=== PATIENT | female | born 1960 | race African-American/Black ===

== ENCOUNTER 2023-09-05 11:56 | Emergency (ER) | payer OTHER, SELFPAY ==
[2023-09-05] VITALS (7 sets, daily range): BP systolic 132–159; BP diastolic 89–122; PULSE 110–120; RESP 18–20; TEMP 36.3–36.6; O2SAT 93–100
--- NOTE | ~2023-09-05 | CT_ITS ---
EXAMINATION: CT abdomen pelvis w con DATE: 09/05/2023 16:59 INDICATION: Biliary drain dysfunction. TECHNIQUE: Computed tomography (CT) of the abdomen and pelvis was performed with 100 mL Omnipaque 350 intravenous contrast. Automated exposure control and iterative reconstruction technique were employe d. The dose-length product was 326.97 mGy-cm. COMPARISON: None. FINDINGS: The visualized portions of the lung bases demonstrate mild atelectasis. No pleural effusion . The heart size is normal. There are coronary artery calcifications. No pericardial effusion. There are cysts in the liver measuring up to 9 mm. There is a percutaneous cholecystectomy tube in expected position. The gallbladder is decompressed. The spleen, pancreas, and adrenal glands are normal. Ther e are cysts in the kidneys measuring up to 8 mm on the left. There is mild atrophy of left kidney. Th ere is a 3.0 cm fusiform aneurysm of infrarenal aorta. There is calcified atherosclerosis of the aort a and many of the other arteries. There is a right inguinal hernia containing fat. There is diverticu losis of the colon without evidence of diverticulitis. There are no dilated loops of bowel. The appen yi is normal. There is a 7.0 x 4.5 cm cyst with imperceptible wall in the mesentery on the right, li bhupendra a lymphangioma. There are no pathologically enlarged lymph nodes. There is no free intraperitone al fluid. There is thoracolumbar dextroscoliosis and moderate spondylosis. There is mild chronic ante rior wedging of multiple vertebral bodies. IMPRESSION: 1. Decompressed gallbladder with percutaneous cholecystostomy tube in expected position. Reviewed, dictated and finalized at location A.
--- NOTE | 2023-09-05 13:14 | PC.NURSE ---
Patient billiary drain intact, insertion site does not appear to have any drainage, but the drain has no bag in place, and patient states she's had it tucked into her depend for a long time since the bag bust open patient afebrile and denying any pain
--- NOTE | 2023-09-05 14:06 | ED.GENADULT ---
HPI - General Adult General Chief complaint: Recheck/Abnormal Lab/Rx Stated complaint: biliary port falling out Time Seen by Provider: 09/05/23 13:07 History of Present Illness HPI narrative: This is a 62-year-old [facility] patient presenting for evaluation of her biliary drain. [facility] says that she pulled out. Does not appear that she pulled out his peers there is no bag on the end of it. It is still sutured in place. Patient is A&O times 1-2 and can provide no useful information during the exam. We did reach out to the [facility] they do not know where the stent was actually placed at. There are no records in our system. Exam Narrative: APPEARANCE: No apparent distress. Head: atraumatic. EYES: EOMI, NOSE: Atraumatic NECK: Trachea midline RESPIRATORY: No increased rate of breathing CARDIOVASCULAR: RRR, ABDOMINAL: Biliary drain in place, no surrounding cellulitic changes. Abdomen is soft nontender no guarding rebound. MUSCULOSKELETAl: No obvious deformities NEURO: Alert. Moving 4/4 extremities SKIN:: Warm, dry. Normal color PSYCHIATRIC: Normal affect Course Vital Signs Vital signs: Vital Signs Temperature 98 F 09/05/23 11:58 Pulse Rate 120 H 09/05/23 11:58 Respiratory Rate 20 09/05/23 11:58 Blood Pressure 139/90 09/05/23 11:58 Pulse Oximetry 93 09/05/23 11:58 Oxygen Delivery Room Air 09/05/23 11:58 Temperature 97.3 F L 09/05/23 12:42 Pulse Rate 113 H 09/05/23 12:42 Respiratory Rate 18 09/05/23 12:42 Blood Pressure 150/100 H 09/05/23 13:47 Pulse Oximetry 100 09/05/23 13:47 Oxygen Delivery Room Air 09/05/23 11:58 Medical Decision Making MDM Narrative Medical decision making narrative: -Course: This is a 62-year-old patient presenting for evaluation of her biliary drain. Biliary drain is in expected location. Patient was given a replacement bag. Patient discharged back to [facility] for further care. Vital Signs Vital Signs: Vital Signs Temperature 98 F 09/05/23 11:58 Pulse Rate 120 H 09/05/23 11:58 Respiratory Rate 20 09/05/23 11:58 Blood Pressure 139/90 09/05/23 11:58 Pulse Oximetry 93 09/05/23 11:58 Oxygen Delivery Room Air 09/05/23 11:58 Temperature 97.3 F L 09/05/23 12:42 Pulse Rate 113 H 09/05/23 12:42 Respiratory Rate 18 09/05/23 12:42 Blood Pressure 150/100 H 09/05/23 13:47 Pulse Oximetry 100 09/05/23 13:47 Oxygen Delivery Room Air 09/05/23 11:58 Lab Data 09/05/23 14:39 09/05/23 14:39 Labs: Lab Results 09/05/23 Range/Units 14:39 WBC 7.5 (4.5-10.0) K/mm3 RBC 2.82 L (4.2-5.4) M/mm3 Hgb 8.6 L (12.0-15.0) g/dL Hct 27.7 L (37.0-47.0) % MCV 98.2 (80-100) fl MCH 30.5 (26-34) pg MCHC 31.0 L (32-36) g/dl RDW 14.2 (11.5-14.5) % Plt Count 297 (150-375) k/mm3 MPV 10.6 H (7.4-10.4) fl Immature Gran % (Auto) 0.3 (0-0.5) % Neut % (Auto) 67.7 (45.5-73.1) % Lymph % (Auto) 18.9 (18.3-44.2) % [place] % (Auto) 9.5 H (2.6-8.5) % Eos % (Auto) 2.8 (0-4.4) % Baso % (Auto) 0.8 (0.2-1.2) % Lymph # (Auto) 1.41 (0.9-3.2) K/mm3 [place] # (Auto) 0.7 H (0.1-0.6) K/mm3 Eos # (Auto) 0.2 (0-0.3) K/mm3 Baso # (Auto) 0.1 (0.0-0.1) K/mm3 Abs Immat Gran (auto) 0.02 (0.00-0.031) K/mm3 Absolute Neuts (auto) 5.1 (1.3-6.7) K/mm3 Absolute Nucleated RBC 0.000 (0.0-0.012) K/mm3 Nucleated RBC % 0.0 (0.0-0.2) % Sodium 137 (137-145) mmol/L Potassium 3.1 L (3.4-5.0) mmol/L Chloride 97 L (98-107) mmol/L Carbon Dioxide 29 (22-30) mmol/L Anion Gap 11 (4-12) mmol/L BUN 28 H (7-17) mg/dL Creatinine 5.00 H (0.7-1.0) mg/dL Estim Creat Clear Calc 11 ml/min Estimated GFR 11 L (59 - ) Glucose 114 H (65-110) mg/dL Calcium 9.7 (8.4-10.2) mg/dL Total Bilirubin 0.6 (0.2-1.3) mg/dL AST 34 (14-36) U/L ALT 26 (6-35) U/L Alkaline Phosphatase 108 (38-126) U/L Total Protein 8.0 (6.3-8.2) g/dL [place]
[2023-09-05 14:57] LABS: Basophils Absolute Auto 0.1 K/mm3 (0.0-0.1); Basophils Percent Auto 0.8 % (0.2-1.2); Eosinophils Absolute Auto 0.2 K/mm3 (0-0.3); Eosinophils Percent Auto 2.8 % (0-4.4); Hematocrit 27.7 % (37.0-47.0); Hemoglobin 8.6 g/dL (12.0-15.0); Immature Granulocyte Absolute 0.02 K/mm3 (0.00-0.031); Immature Granulocyte Percent A 0.3 % (0-0.5); Lymphocytes Absolute Auto 1.41 K/mm3 (0.9-3.2); Lymphocytes Percent Auto 18.9 % (18.3-44.2); Mean Corpuscular Hemoglobin 30.5 pg (26-34); Mean Corpuscular Volume 98.2 fl (80-100); Mean Platelet Volume 10.6 fl (7.4-10.4); Monocytes Absolute Auto 0.7 K/mm3 (0.1-0.6); Monocytes Percent Auto 9.5 % (2.6-8.5); Neutrophils Absolute Auto 5.1 K/mm3 (1.3-6.7); Neutrophils Percent Auto 67.7 % (45.5-73.1); Platelet Count Result 297 k/mm3 (150-375); Red Blood Count 2.82 M/mm3 (4.2-5.4); Red Cell Distribution Width 14.2 % (11.5-14.5); White Blood Count 7.5 K/mm3 (4.5-10.0)
[2023-09-05 15:10] LABS: Alanine Aminotransferase 26 U/L (6-35); Albumin Level 4.5 g/dL (3.5-5.1); Alkaline Phosphatase 108 U/L (38-126); Anion Gap 11 mmol/L (4-12); Aspartate Amino Transferase 34 U/L (14-36); Bilirubin,Total 0.6 mg/dL (0.2-1.3); Blood Urea Nitrogen 28 mg/dL (7-17); Calcium 9.7 mg/dL (8.4-10.2); Carbon Dioxide 29 mmol/L (22-30); Chloride 97 mmol/L (98-107); Estimated CRCL calculation 11 ml/min; Estimated Glomerular Filt Rate 11; Glucose 114 mg/dL (65-110); Potassium 3.1 mmol/L (3.4-5.0); Sodium 137 mmol/L (137-145)
== END 2023-09-05 17:29 ==
PROVIDERS: Emergency Provider Emergency Medicine
DX: Z43.4 Encounter for attention to other artificial openings of digestive tract (principal)
CPT/HCPCS: 36415; 74177; 80053; 85025; 99284; Q9967